=== PATIENT | male | born 1970 | race Caucasian/White ===

== ENCOUNTER → 2019-01-28 09:30 | Outpatient (CLI) | payer BC, SELFPAY ==
--- NOTE | 2019-01-28 09:35 | XR_ITS ---
XR elbow RT min 3V Ordering Physician: Misti Weir MD Patient Age: 48 years: Male HISTORY: right elbow pain and swelling. Large knot posterior elbow 3 weeks. No injury. Pain, soreness. Steroids have not helped.. TECHNIQUE: 3 view right elbow COMPARISON :None prior FINDINGS There is focal soft tissue swelling seen along the posterior aspect of the elbow overlying the olecranon. This pattern most typically seen with a olecranon bursitis. There is some faint wispy 2 mm x 1 mm calcification overlying the posterior prominence slight posterior process olecranon . This could reflect subtle old trauma. Although not typical for gout calcification at this specific site you may want to exclude gout in the workup. The cortex shows no destruction to suggest additional bone involvement or infection there is no no joint effusion. The radial head is intact the elbow joint is intact. IMPRESSION: 1.. Prominent soft tissue swelling dorsal to the olecranon Most typically this is seen with a olecranon bursitis. Tiny wispy calcification overlying the posterior process of the olecranon Noted. & Nonspecific as discussed above
== END ==
PROVIDERS: PCP Physician Assistant; Visit Provider Orthopaedic Surgery
DX: M25.521 Pain in right elbow (principal)
CPT/HCPCS: 73080

== ENCOUNTER 2020-10-24 13:41 | Emergency (ER) | payer OTHER, SELFPAY ==
[2020-10-24 13:50] VITALS: BP 134/84; PULSE 91; RESP 18; TEMP 36.7; O2SAT 97; BMI 23.8
[2020-10-24 14:15] LABS: UTC Influenza A Antigen Negative (Negative)
[2020-10-24 14:16] LABS: UTC Influenza B Antigen Negative (Negative)
--- NOTE | 2020-10-24 14:29 | HMH.EDUTC ---
[facility] [place] Disposition Clinical Impression: Bronchitis Sinusitis Qualifiers: Sinusitis location: unspecified location Chronicity: unspecified Qualified Code(s): J32.9 - Chronic sinusitis, unspecified Disposition: Home, Self-Care Condition on Discharge: Good Instructions: Acute Bronchitis, DI for Sinusitis, DI for Cough -- Adult Additional Instructions: ? Start antibiotic today. Be sure to complete entire prescription even if feeling better ? Monitor temp. Tylenol every 4 hours as needed and / or ibuprofen every 6 hours as needed ( As long as your primary care physician has told you that it ok to take both. For fever/aches/pains ER if no less than 101 despite Tylenol or Motrin ? Humidifier/vaporizer or hot steamy shower ? Inhaler every 4-6 hours as needed like we discussed. If unsure how to use it, ask pharmacist to demonstrate how. Should help open airways and improve cough, wheezing, and shortness of breath ? Mucinex during the day for your cough and cough suppressant only at night. Be sure to drink lots of water. Insurance may not cover a prescriptions for mucinex. Might be cheaper to get 400mg tablets and take 2 tablet in the morning, mid-day and evening with lots of water. *Promethazine DM cough syrup will cause drowsiness. Use only at night. No driving, operating machinery or caring for small children after taking it *Tessalon Perles will not cause drowsiness but use at bedtime to help stop cough so that you may get some rest. *Start steroid today. Helps with inflammation therefore, cough and wheezing. Follow directions on the package. Reviewed side effects. Patient reports taking them before. Follow up IMMEDIATELY for new or worsening of symptoms OR no noticeable improvement over the next 48-72 hours. 911 immediately for any life threatening symptoms such as chest pain or difficulty breathing Prescriptions: Albuterol Sulfate [Proventil-HFA 90mcg/puff Inh] 1 - 2 puffs IH Q4HP PRN #1 inh PRN Reason: Shortness Of Breath Transmission Status: Pending to [facility] 493 methylPREDNISolone [Medrol 4mg tab] 4 mg PO DIRECTED #21 tab Transmission Status: Pending to [facility] 493 Azithromycin [Z-Domenico 250mg Tab] 250 mg PO DIRECTED #6 tab Transmission Status: Pending to [facility] 493 Referrals: Teri Woodard PA [Primary Care Provider] - Forms: Work/School Release Time of Disposition: 14:41 Medical Decision Making - Grey Inquiry Pt receiving controlled substance: No Grey was queried for this patient: No Vital Signs: 10/24/20 13:50 Temperature 98.0 F Temperature Source Oral Pulse Rate [Right Brachial] 91 H Respiratory Rate 18 Blood Pressure [Right Arm] 134/84 Blood Pressure Mean [Right Arm] 100 Blood Pressure Source [Right Arm] Automatic Cuff Blood Pressure Position [Right Arm] Sitting 02 Sat by Pulse Oximetry 97 Oxygen Delivery Method Room Air - Lab Data Lab results reviewed: Yes: I reviewed the patient's lab results. Lab Results 10/24/20 14:07: Influenza Type A Ag Negative, Influenza Type B Ag Negative Orders (Tests/Meds): ORDERS Category Date Time Status Covid-19 Nasal PCR Sendout Jairon Stat Lab 10/24/20 14:34 Ordered [facility] [place] HPI - General Stated complaint: SOA, Chest tightness,achey,headache Time Seen by Provider: 10/24/20 14:29 Mode of Arrival: Ambulatory Source of Information: Patient Limitations: No Limitations Description of Symptoms (Recalled from Triage Doc. by RN): PATIENT C/O FEVER, COUGH, HEADACHE, AND TIGHTNESS IN CHEST HEENT Symptoms (Recalled from RN notes): Yes Resp Symptoms (Recalled from RN notes): Yes Skin Symptoms (Recalled from RN notes): No MS Symptoms (Recalled from RN notes): No Functional Status (Recalled from RN notes): WNL - History of Present Illness Provider Complaint: Patient state that he has been having cough, sore throat, body aches, chills and over all not feeling well States that he isnt coughing anything up but feels lik
[2020-10-24 14:50] VITALS: BP 134/84; PULSE 91; RESP 18; TEMP 36.7; O2SAT 97
[2020-10-24 14:52] LABS: UTC Strep Screen (Rapid) Negative (Negative)
[2020-10-26 09:59] LABS: Covid-19 Nasal PCR Sendout Lex NOT DETECTED
== END 2020-10-24 14:59 | disposition home or self-care (01) ==
PROVIDERS: Emergency Provider Nurse Practitioner; PCP Physician Assistant
DX: Z20.828 Contact with and (suspected) exposure to other viral communicable diseases (principal); J20.9 Acute bronchitis, unspecified; J32.9 Chronic sinusitis, unspecified; F17.210 Nicotine dependence, cigarettes, uncomplicated
CPT/HCPCS: 87804; 87880; 99202; U0004

== ENCOUNTER → 2020-11-16 08:11 | Outpatient (CLI) | payer OTHER, SELFPAY ==
--- NOTE | 2020-11-16 08:11 | CA_ITS ---
APPROVED REPORT EXAM: Comprehensive 2D, Doppler, and color-flow Echocardiogram Account Manager Sales Representative: Donna Galarza CRT Ht: 5 ft 10 in Wt: 179lbs BSA: 1.99 BP: 118/80 mmHg Indications: CP,SMOKER 2D Dimensions LVOT 2.14 cm (M/F) 1.5-2.5 M-Mode Dimensions RVDd 2.52 cm (0.9-2.6) LA Diam 3.71 cm (1.9-4.0) LVDd 4.17 cm (3.5-5.7) Ao Diam 2.82 cm (2.0-3.7) LVDs 3.04 cm (3.5-5.7) IVSd 0.44 cm (0.6-1.1) PWd 0.68 cm (0.6-1.1) EF (Teich) 53.20% FS 27.10% EDV (Teich) 77.30 mL ESV (Teich) 36.20 mL LV Diastology E Decel Time 160.00 (160-240 msec) E/A Ratio 1.0 MED E' 9.80 (< 7 cm/sec) E'/MED E' Ratio 5.38 (>14) LAT E' 13.70 (<10 cm/sec) E/LAT E' Ratio 3.85 (>14) Mitral Valve MV E Max Geovani. 53.00 (40-130 cm/s) MV A Velocity 52.00 (40-130 cm/s) E/A Ratio 1.01 MV Decel. Time 160.00 (160-240 ms) MV PHT 47.00 ms Pulmonary Valve PV Peak Velocity 66.00 (50-150 cm/s) Tricuspid Valve TR P. Velocity 178.00 cm/s RAP Estimate 10.00 mmHg RVSP 22.70 mmHg Left Ventricle Left atrium is normal size, left ventricle is normal size, visually estimated ejection fraction 55% with no regional wall motion abnormality, diastolic parameters are within normal range. Right Ventricle Right atrium and right ventricle are normal size and contractility. Aortic Valve Aortic valve is minimally thickened and fibrosed, there is no aortic stenosis or aortic insufficiency. Mitral Valve Mitral valve is grossly normal, there is trace mitral regurgitation. Tricuspid Valve Tricuspid valve grossly normal, there is trace tricuspid regurgitation. Pulmonic Valve Pulmonic valve is poorly visualized. Great Vessels Aortic root is normal size. Pericardium No significant pericardial effusion noted. Conclusion 1. Normal left ventricular size, preserved left ventricular systolic function, visually estimated ejection fraction 55% with no regional wall motion abnormality, diastolic parameters are within normal range. 2. Trace mitral and tricuspid regurgitation. 3. No significant pericardial effusion noted. Electronically signed by : Ad Wild, 11/16/2020 13:03:10
--- NOTE | 2020-11-16 08:11 | CA_ITS ---
APPROVED REPORT Exam: Exercise Treadmill Technologist: Sharon Espinal, Ht: 5 ft 10 in Wt: 179 lbs BSA: 1.99 m2 HR: 64 bpm BP: 130/97 mmHg Rhythm: NSR,EARLY REPOLARIZATION CHANGES,ST-T ABNS IN III,aVF Medical History Medications: Albuterol,,,,, DOxycycline,,,,, Allergies: No known drug allergies Cardiac Risk Factors: FHX of CAD Stress Test Details Test: Leonel HR Resting HR: 67 bpm Max Heart Rate (APMHR): 168 bpm Max HR Achieved: 150 bpm Target HR (85% APMHR): 142 bpm % of APMHR: 89 Recovery HR: 126 bpm BP Resting BP: 130.0/97.0 mmHg Recovery BP: 148.0/84.0 mmHg ECG Medications Administered Cardizem Injection ( mg at ) Clinical Exercise duration: 10:45 min Highest Stage Achieved: Exercise capacity: 12.8 METs Stress ECG Conclusion EXERCISED 10:45 ON LEONEL PROTOCOL WITH MAX HEART RATE 140 BPM WHICH IS 83% OF PM FOR AGE. MAX BP 166/85. METS = 12.8. TEST STOPPED DUE TO SOA AND LEG FATIGUE. NO CP. RARE PVC. NORMAL ST RESPONSE TO EXERCISE. NORMAL GXT TO HR ACHIEVED(83%OF PM). GXT ONLY (NO IMAGING) Test Summary Stage 4 01:45 16.0 4.2 140 . . . . REST . . . . . . . Standing REST . . . . . . . Sitting REST . . . . . . . Sitting REST 05:01 0.0 0.0 67 . 130/ 97 . . Stage 1 01:00 10.0 1.7 91 . . . . Stage 1 02:00 10.0 1.7 95 . . . . Stage 1 03:00 10.0 1.7 96 . 138/ 80 . . Stage 2 01:00 12.0 2.5 100 . . . . Stage 2 02:00 12.0 2.5 104 . . . . Stage 2 03:00 12.0 2.5 106 . 145/ 80 . . Stage 3 01:00 14.0 3.4 115 . . . . Stage 3 02:00 14.0 3.4 120 . . . . Stage 3 03:00 14.0 3.4 122 . 166/ 85 . . Stage 4 01:00 16.0 4.2 138 . . . . Stage 4 01:45 16.0 4.2 140 . . . Stop exercise at 10:45 RECOVERY 01:00 0.0 0.0 119 . . . . RECOVERY 02:00 0.0 0.0 92 . 148/ 84 . . RECOVERY 03:00 0.0 0.0 78 . 145/ 85 . . RECOVERY 04:00 0.0 0.0 66 . 137/ 87 . . RECOVERY 05:00 0.0 0.0 74 . 129/ 85 . . RECOVERY 05:34 0.0 0.0 74 . 129/ 85 . . Electronically signed by : Marcel Garcia, 11/16/2020 14:25:37
== END ==
PROVIDERS: PCP Physician Assistant; Visit Provider Physician Assistant
DX: R07.9 Chest pain, unspecified (principal)
CPT/HCPCS: 93017; 93306

== ENCOUNTER → 2021-04-16 17:38 | Outpatient (CLI) | payer OTHER, SELFPAY ==
[2021-04-16 18:14] LABS: Basophils # 0.1 K/mm3 (0-0.2); Basophils % 0.6 % (0.1-2.0); Eosinophils # 0.2 K/mm3 (0.0-0.4); Eosinophils % 2.4 % (0.1-12.0); Hematocrit 40.3 % (42.0-52.0); Hemoglobin 13.6 g/dL (14.1-18.0); Lymphocytes # 2.3 K/mm3 (0.7-4.5); Mean Corpuscular HGB Conc 33.7 g/dL (31.8-35.4); Mean Corpuscular Volume 86.2 fl (80-94); Monocytes # 0.5 K/mm3 (0.1-1.0); Monocytes % 5.6 % (1.7-9.3); Neutrophils # 6.7 K/mm3 (1.8-7.8); Neutrophils % 68.4 % (37.0-80.0); Platelet Count 237 K/mm3 (142-424); Red Blood Count 4.68 M/mm3 (4.60-6.20); Red Cell Distribution Width 13.3 % (11.5-17.5); White Blood Count 9.7 K/mm3 (4.8-10.8)
[2021-04-16 19:38] LABS: Alanine Aminotransferase 22 U/L (12-78); Albumin Level 4.3 g/dl (3.5-5.0); Albumin/Globulin Ratio 1.5 (1.1-1.8); Alkaline Phosphatase 59 U/L (38-126); Anion Gap 10.7 mEq/L (5-15); Aspartate Amino Transferase 29 U/L (17-59); Blood Urea Nitrogen 12 mg/dl (9-20); Calcium 8.9 mg/dl (8.4-10.2); Carbon Dioxide 22 mmol/L (22.0-30.0); Chloride 108 mmol/L (98-107); Cholesterol 135 mg/dl (140-200); Estimated Glomerular Filt Rate 89 ml/min (>60); GFR (African American) 107 ML/MIN (>60); Globulin 2.8 g/dL (1.3-3.2); Glucose 111 mg/dl (74-100); HDL Cholesterol 34 mg/dl (40-60); Potassium 3.7 mmoL/L (3.5-5.1); Sodium 137 mmol/L (136-145); Total Protein,Serum 7.1 g/dl (6.3-8.2); Triglycerides 192 mg/dl (30-150); VLDL Cholesterol 38 mg/dL (0-40)
[2021-04-16 19:41] LABS: Erythrocyte Sedimentation Rate 20 mm/hr (0-20)
[2021-04-16 19:45] LABS: C-Reactive Protein 3.7 mg/L (0-4)
[2021-04-16 19:55] LABS: Direct LDL Cholesterol 63.02 mg/dL (100-129)
[2021-04-16 20:10] LABS: Prostate Specific Ag Screen 0.5 ng/ml (0.0-4.0); Thyroid Stimulating Hormone 1.66 uIU/mL (0.465-4.68)
[2021-04-18 14:51] LABS: Anti-Centromere B Antibodies <0.2 AI (0.0-0.9); Anti-Jo-1 <0.2 AI (0.0-0.9); Anti-Smith Antibody <0.2 AI (0.0-0.9); Antichromatin Antibodies <0.2 AI (0.0-0.9); Antiscleroderma-70 Antibodies <0.2 AI (0.0-0.9); RNP Antibodies 0.2 AI (0.0-0.9); Sjogren's Anti-SS-A <0.2 AI (0.0-0.9); Sjogren's Anti-SS-B <0.2 AI (0.0-0.9)
[2021-04-19 05:52] LABS: Anti-DNA (DS) Ab Qn <1 IU/mL (0-9); RA Latex Turbid. <10.0 IU/mL (0.0-13.9)
[2021-04-19 05:53] LABS: Anti-Cyclic Citrullinated Pept 2 units (0-19)
== END ==
PROVIDERS: Visit Provider Physician Assistant
DX: R11.0 Nausea (principal); M25.50 Pain in unspecified joint; H66.91 Otitis media, unspecified, right ear; Z12.5 Encounter for screening for malignant neoplasm of prostate; Z72.0 Tobacco use
CPT/HCPCS: 80053; 80061; 84443; 85025; 85651; 86140; 86200; 86225; 86235; 86431; G0103

== ENCOUNTER 2021-04-20 12:31 | Emergency (ER) | payer OTHER, SELFPAY ==
[2021-04-20 12:39] VITALS: BP 135/79; PULSE 92; RESP 19; TEMP 37.4; O2SAT 99; BMI 24.3
[2021-04-20 12:50] VITALS: BP 135/79; PULSE 92; RESP 19; TEMP 37.4; O2SAT 99
--- NOTE | 2021-04-20 12:50 | HMH.EDUTC ---
[facility] [place] Disposition Clinical Impression: Otitis externa Qualifiers: Otitis externa type: unspecified type Chronicity: unspecified Laterality: right Qualified Code(s): H60.91 - Unspecified otitis externa, right ear Disposition: Home, Self-Care Condition on Discharge: Good Instructions: Otitis Externa, DI for Otitis Externa Additional Instructions: Continue oral antibiotics as prescribed by your Family Doctor and will add Ofloxicin ear drops for treatment of infection in outer ear canal Use drops as prescribed Follow up with your Family Doctor if no improvement in the next 48-72 hours Return if needed Straight to ER if any life threatening Prescriptions: Ofloxacin [Floxin 0.3% OTIC Solution 5mL] 7 drops OT BID 10 Days #1 bottle Transmission Status: Pending to [facility] 493 methylPREDNISolone [Medrol 4mg tab] 4 mg PO DIRECTED #21 tab Transmission Status: Pending to [facility] 493 Referrals: Teri Woodard PA [Primary Care Provider] - As needed Time of Disposition: 13:05 Medical Decision Making - Grey Inquiry Pt receiving controlled substance: No Grey was queried for this patient: No Vital Signs: 04/20/21 12:39 04/20/21 12:50 Temperature 99.4 F 99.4 F Temperature Source Oral Pulse Rate 92 H Pulse Rate [Left] 92 H Respiratory Rate 19 19 Blood Pressure 135/79 Blood Pressure [Right Arm] 135/79 Blood Pressure Mean [Right Arm] 97 02 Sat by Pulse Oximetry 99 [facility] [place] HPI - General Stated complaint: Ear ache; migraine;lightheaded Time Seen by Provider: 04/20/21 12:51 Mode of Arrival: Ambulatory Source of Information: Patient Limitations: No Limitations Description of Symptoms (Recalled from Triage Doc. by RN): Pt states he was here on Friday and saw Teri and was treated for an right ear infection and it is getting so bad he can't hardly function . HEENT Symptoms (Recalled from RN notes): Yes Resp Symptoms (Recalled from RN notes): No Skin Symptoms (Recalled from RN notes): No MS Symptoms (Recalled from RN notes): No Functional Status (Recalled from RN notes): wnl - History of Present Illness Provider Complaint: Patient state that he saw his PCP on Friday for right ear infection State that it has continued to get worse even though he has been taking his oral medication State that now ear is sore to the touch and hurts when he touches or lays on that side and feels like it is swollen and drainage coming from it State that he feels like there is fluid in there and making him have throbbing pain and feel off balance at times State that he was trying to work today but his ear was throbbing so he came back in to get it checked - Related Data Previous Rx's Medication Instructions Recorded albuterol sulfate 90 mcg/actuation 2 inh INHALATION Q4HP PRN #1 inh 10/31/20 aerosol inhaler amoxicillin 875 mg-potassium 1 tab PO BID 10 Days #20 tab 04/16/21 clavulanate 125 mg tablet omeprazole 40 mg capsule,delayed 40 mg PO DAILY #90 cap 04/16/21 release Ofloxacin [Floxin 0.3% OTIC 7 drops OT BID 10 Days #1 bottle 04/20/21 Solution 5mL] methylPREDNISolone [Medrol 4mg 4 mg PO DIRECTED #21 tab 04/20/21 tab] Allergies Allergy/AdvReac Type Severity Reaction Status Date / Time No Known Allergies Allergy Verified 04/20/21 12:50 - Worker's Comp Is this a Worker's Comp case?: No [facility] History - Hepatitis A Screen Drug use history?: No High risk sexual behaviors?: No History of sexually transmitted infection?: No Currently employed?: No Childcare worker?: No Do you have indoor plumbing?: Yes Do you have electricity?: Yes Attestation statement:: This patient has been screened for Hepatitis A risk factors. I have reviewed the patient's past medical history: Yes Medical History: Reports:: Kidney Stones Denies:: Cancer, Diabetes Mellitus Type 1, Diabetes Mellitus Type 2, MRSA Other Surgeries: Yes: No Previous Surgery Amputation: No Fractures: No - Social Hi
== END 2021-04-20 13:09 | disposition home or self-care (01) ==
PROVIDERS: Emergency Provider Nurse Practitioner; PCP Physician Assistant
DX: H60.91 Unspecified otitis externa, right ear (principal); Z87.442 Personal history of urinary calculi
CPT/HCPCS: 99202; G0463

== ENCOUNTER → 2021-04-24 08:40 | Outpatient (CLI) | payer OTHER, SELFPAY ==
--- NOTE | 2021-04-24 08:40 | US_ITS ---
PROCEDURE: US ABDOMEN LIMITED CLINICAL INDICATION: postprandial nausea Right upper quadrant pain COMPARISON: No exams were available for comparison FINDINGS: PANCREAS: Pancreatic tail is not well visualized. The body and head region of the pancreas have an unremarkable sonographic appearance. LIVER: No focal liver lesions demonstrated. Homogeneous echogenicity. No intrahepatic biliary ductal dilatation evident. There is appropriate direction of blood flow within a non dilated portal vein RIGHT KIDNEY: Unremarkable. Normal size and echogenicity. No hydronephrosis GALLBLADDER: No gallstones, gallbladder wall thickening, pericholecystic fluid, or biliary dilatation. Small polyp is present in the gallbladder along the posterior wall measuring 2 mm. IMPRESSION: No gallstones apparent. Small gallbladder polyp of approximately 2 mm. Dictated by: Dean Archer MD 04/24/2021 10:58 Dean Archer MD in [place] 04/24/2021 10:58
== END ==
PROVIDERS: PCP Physician Assistant; Visit Provider Physician Assistant
DX: R11.0 Nausea (principal)
CPT/HCPCS: 76705

== ENCOUNTER → 2021-05-10 10:01 | Outpatient (CLI) | payer OTHER, SELFPAY ==
--- NOTE | 2021-05-10 10:01 | NM_ITS ---
PROCEDURE: NM HEPATOBILIARY W PHARM CLINICAL INDICATION: Polyp on gallbladder COMPARISON: No exams were available for comparison FINDINGS: There is normal homogeneous uptake in the liver with normal uptake in the biliary tree and gallbladder and normal excretion of radiotracer into the duodenum by 1 hour. IV injection of CCK the gallbladder ejection fraction is normal at 83 percent (normal is 35 percent or greater). There was mild upper abdominal pain with IV injection of CCK. IMPRESSION: Normal hepatobiliary scan with normal gallbladder ejection fraction of 83 percent. Mild upper abdominal pain with IV injection of CCK. Dictated by: Kei Andino MD 05/10/2021 12:43 Kei Andino MD in [place] 05/10/2021 12:43
== END ==
PROVIDERS: PCP Physician Assistant; Visit Provider Physician Assistant
DX: K82.4 Cholesterolosis of gallbladder (principal)
CPT/HCPCS: 78227; A9537; J2805

== ENCOUNTER → 2021-06-13 17:35 | Outpatient (CLI) | payer OTHER, SELFPAY | PROVIDERS: Visit Provider Internal Medicine Gastroenterology | DX: Z01.812 Encounter for preprocedural laboratory examination (principal); Z11.52 Encounter for screening for COVID-19; Z13.810 Encounter for screening for upper gastrointestinal disorder | CPT/HCPCS: U0003 ==

== ENCOUNTER 2021-06-15 11:26 | Day surgery (SDC) | payer OTHER, SELFPAY ==
[2021-06-12 10:54] VITALS: BMI 24.3
[2021-06-15 12:09] VITALS: BP 109/82; PULSE 70; RESP 18; TEMP 36.6; O2SAT 97
--- NOTE | 2021-06-15 12:55 | P.PN_ITS ---
[facility] Anesthesia Checklist - Structural Data Admitted From: Home Planned Operative Procedure/s: egd Consent for Planned Operative Procedure(s) Verified: Yes - Airway Assessment C-Spine Mobility Assessed: Yes TMJ Mobility Assessed: Yes Dentition: Good Dentition - Neurological Assessment Level of Consciousness: Awake, Alert, Appropriate - Anesthesia Plan Anesthesia Risk discussed: Yes Anesthesia Plan: Verified ASA Class: II Anesthesia Type: MAC [facility] History I have reviewed the patient's past medical history: Yes Medical History: Reports:: Kidney Stones Denies:: Cancer, Diabetes Mellitus Type 1, Diabetes Mellitus Type 2, Internal Pacemaker, MRSA, Seizures *Have you ever received a pneumonia vaccine?: No *Have you received a flu vaccine this season?: No Anesthesia experience/problems:: none Other Surgeries: Yes: No Previous Surgery. No: Pacemaker Amputation: No Fractures: No - *Social History Last grade of school completed: Advanced degree Smoking Status: Current every day smoker Tobacco Type: cigarettes # Packs/Day (cigarettes): 1 Alcohol Intake: current Alcohol Intake Frequency:: holidays/special occasions only Substance Use Type: denies use *Occupational Status:: employed Housing: house Household Members: spouse *Travel in the last 8 weeks: None Family Hx:: Cancer, Hyperlipidemia, Hypertension
--- NOTE | 2021-06-15 13:06 | HMH.PROC ---
[facility] Procedure Note Procedure Note:: Upper Endoscopy Procedure Report: Esophagogastroduodenoscopy with cold biopsies and TTS balloon dilation Endoscopost: Sedrick Velasco II, MD Referring Physician: Teri Woodard PA-C Date of Procedure: June 15, 2021 Equipment: Olympus GIF 190 standard upper endoscope Sedation: MAC sedation Indications: Mr. Kingston is a 50-year-old gentleman with postprandial nausea during and immediately after his meals. He does have early satiety. He also reports moderate bloating and some gassiness. He has had some epigastric abdominal discomfort. He does get rare vomiting. He reports some minor belching. The patient also has had diarrhea for more than a year on 4 out of 7 days. The patient did have echocardiogram and cardiac stress testing in October 2020 which was essentially normal. His more recent ultrasound of the right upper quadrant showed a normal gallbladder with no gallstones or cholecystitis. There was a very small 2 mm gallbladder polyp. His subsequent HIDA scan showed an 83% gallbladder ejection fraction (normal). The patient reports some heartburn but no chest pain or dysphagia. The patient's last colonoscopy was 6 to 8 years ago and was normal. Procedure: Prior to the procedure, a history and physical exam was performed, and patient's medications and allergies were reviewed. The risks, benefits and alternatives of the sedation and procedure were discussed with the patient. All questions were answered and informed consent was obtained. The patient was brought to the procedure room. Patient identification and proposed procedure were verified by the physician and the nurse. The patient was placed in a left lateral decubitus position and the scope was passed under direct vision. Throughout the procedure, the patient's blood pressure, pulse, and oxygen saturations were monitored continuously. The upper GI endoscopy was accomplished without difficulty. The patient tolerated the procedure well. Findings: The scope was passed directly into the upper esophagus and advanced to the third portion of the duodenum. The post bulbar duodenum and duodenal bulb were normal with normal mucosa and conniventes. Cold biopsies were taken from the duodenum. The scope was withdrawn through a normal duodenal bulb and pylorus into the stomach. There was some bile reflux with linear reactive gastropathy of the antrum of the stomach. The remainder of the body and fundus of the stomach were grossly normal. Upon retroflexion there was a 3 cm medium sized hiatal hernia. 2 biopsies were taken in the antrum and along the lesser curvature for histology to rule out gastritis and/or H pylori. The scope was then withdrawn into the esophagus. There was a serrated Z-line and evidence of nonerosive GERD. There were tertiary contractions and evidence of moderate esophageal dysmotility. Biopsies were taken from the GE junction. The entire esophagus was dilated to 60 Lithuanian/20 mm with a TTS hydrostatic balloon. There was mild resistance at the cricopharyngeus. The remainder of the esophageal mucosa was normal. Impression: 1. Nonerosive GERD with moderate esophageal dysmotility and medium sized (3 cm) hiatal hernia 2. Bile reflux with mild linear reactive gastropathy Plan: I will follow-up the biopsies. I do feel that the patient has functional dyspepsia. We will discuss dietary measures and treatment options. I will recommend diagnostic colonoscopy as well.
[2021-06-15 13:10] VITALS: BP 103/69; PULSE 76; RESP 16; TEMP 37.6; O2SAT 93
[2021-06-15 13:20] VITALS: BP 120/68; PULSE 77; RESP 16; O2SAT 100
[2021-06-15 13:30] VITALS: BP 122/68; PULSE 66; RESP 16
[2021-06-15 14:00] VITALS: BP 116/74; PULSE 58; RESP 16; O2SAT 98
[2021-06-15 14:31] VITALS: O2SAT 94
== END 2021-06-15 14:26 | disposition home or self-care (01) ==
LOC: OUTP 11:28
PROVIDERS: PCP Physician Assistant; Visit Provider Internal Medicine Gastroenterology
PROC: 0DJ08ZZ Inspection of Upper Intestinal Tract, Via Natural or Artificial Opening Endoscopic (ICD-10-PCS; CPT 43235; principal; 2021-06-15 12:30)
DX: K21.9 Gastro-esophageal reflux disease without esophagitis (principal); K30 Functional dyspepsia; K22.4 Dyskinesia of esophagus; K44.9 Diaphragmatic hernia without obstruction or gangrene; K31.9 Disease of stomach and duodenum, unspecified; Z72.0 Tobacco use; Z80.9 Family history of malignant neoplasm, unspecified; Z82.49 Family history of ischemic heart disease and other diseases of the circulatory system; Z83.438 Family history of other disorder of lipoprotein metabolism and other lipidemia; J44.9 Chronic obstructive pulmonary disease, unspecified; Z79.899 Other long term (current) drug therapy
CPT/HCPCS: 43239; 43249; C1726

== ENCOUNTER → 2021-06-25 08:35 | Outpatient (CLI) | payer OTHER, SELFPAY ==
[2021-06-27 13:12] LABS: Pancreatic Elastase, Fecal 163 (>200)
== END ==
PROVIDERS: Visit Provider Internal Medicine Gastroenterology
DX: K85.90 Acute pancreatitis without necrosis or infection, unspecified (principal)
CPT/HCPCS: 82656

== ENCOUNTER → 2021-08-21 16:15 | Outpatient (CLI) | payer OTHER, SELFPAY ==
[2021-08-21 16:39] LABS: Basophils # 0.1 K/mm3 (0-0.2); Basophils % 0.9 % (0.1-2.0); Eosinophils # 0.3 K/mm3 (0.0-0.4); Eosinophils % 3.2 % (0.1-12.0); Hematocrit 46.6 % (42.0-52.0); Hemoglobin 15.2 g/dL (14.1-18.0); Lymphocytes # 2.8 K/mm3 (0.7-4.5); Mean Corpuscular HGB Conc 32.5 g/dL (31.8-35.4); Mean Corpuscular Hemoglobin 30.4 pg (27.0-31.2); Mean Corpuscular Volume 93.4 fl (80-94); Monocytes # 0.5 K/mm3 (0.1-1.0); Monocytes % 5.3 % (1.7-9.3); Neutrophils # 5.9 K/mm3 (1.8-7.8); Neutrophils % 61.7 % (37.0-80.0); Platelet Count 241 K/mm3 (142-424); Red Blood Count 4.99 M/mm3 (4.60-6.20); Red Cell Distribution Width 13.5 % (11.5-17.5); White Blood Count 9.5 K/mm3 (4.8-10.8)
[2021-08-21 16:59] LABS: Amylase 71 U/L (30-110); Blood Urea Nitrogen 12 mg/dl (9-20); Calcium 9.5 mg/dl (8.4-10.2); Carbon Dioxide 28 mmol/L (22.0-30.0); Estimated Glomerular Filt Rate 78 ml/min (>60); GFR (African American) 95 ML/MIN (>60); Glucose 68 mg/dl (74-100)
[2021-08-21 17:47] LABS: Vitamin B12 680 pg/mL (239-931)
[2021-08-21 18:23] LABS: Alanine Aminotransferase 26 U/L (12-78); Albumin Level 4.5 g/dl (3.5-5.0); Albumin/Globulin Ratio 1.4 (1.1-1.8); Alkaline Phosphatase 52 U/L (38-126); Anion Gap 10.6 mEq/L (5-15); Aspartate Amino Transferase 32 U/L (17-59); Chloride 107 mmol/L (98-107); Globulin 3.3 g/dL (1.3-3.2); Lipase 82 U/L (23-300); Potassium 4.6 mmoL/L (3.5-5.1); Sodium 141 mmol/L (136-145); Total Protein,Serum 7.8 g/dl (6.3-8.2)
[2021-08-23 09:19] LABS: CA 19-9 <2 U/mL (0-35)
== END ==
PROVIDERS: Visit Provider Internal Medicine Gastroenterology
DX: K86.81 Exocrine pancreatic insufficiency (principal)
CPT/HCPCS: 36415; 80053; 82150; 82607; 83690; 85025; 86316

== ENCOUNTER 2021-12-08 16:51 | Emergency (ER) | payer OTHER, SELFPAY ==
--- NOTE | 2021-12-08 18:33 | HMH.EDUTC ---
[facility] [place] Disposition Clinical Impression: Viral syndrome, Exposure to COVID-19 virus Disposition: Home, Self-Care Condition on Discharge: Good Instructions: Preventing the Spread of Coronavirus Discharge Instructions, DI for COVID-19 (Suspected or Confirmed ), DI for Viral Syndrome Additional Instructions: Drink plenty of fluids. Take tylenol or ibuprofen for pain or fever. Take the medications as directed. Follow up with your regular doctor. GO TO THE ER FOR ANY WORSENING SYMPTOMS Quarantine until you know the results of your covid-19 test. If it is positive, the health department should call you and give you further instructions about your length of Quarantine and other things. Notify your school or workplace of your results and follow their instructions regarding return to work/school. The cough medication (promethazine dm) will make you drowsy, so don't drive or operate heavy machinery after taking it. Prescriptions: Promethazine/Dextromethorphan [Promethazine-Dm Syrup] 5 ml PO Q6HP PRN #240 ml PRN Reason: Cough Transmission Status: Pending to [facility] 493 Ondansetron [Zofran 4mg ODT] 4 mg PO Q8HP PRN #20 tab PRN Reason: Nausea Transmission Status: Pending to [facility] 493 methylPREDNISolone [Medrol] 4 mg PO DIRECTED 6 Days #21 packet Transmission Status: Pending to [facility] 493 Azithromycin [Z-Domenico 250mg Tab*] 250 mg PO UD DOSE PK #6 tab Transmission Status: Pending to [facility] 493 Referrals: Teri Woodard PA [Primary Care Provider] - Time of Disposition: 19:39 Medical Decision Making - Medical Records Medical records reviewed: No: I reviewed the patient's medical records. - Grey Inquiry Pt receiving controlled substance: No Vital Signs: 12/08/21 18:56 Temperature 99.2 F Temperature Source Oral Pulse Rate [Left] 74 Respiratory Rate 18 Blood Pressure [Right Arm] 118/70 Blood Pressure Mean [Right Arm] 86 02 Sat by Pulse Oximetry 98 - Lab Data Lab Results 12/08/21 18:53: Influenza Type A Ag Negative, Influenza Type B Ag Negative Orders (Tests/Meds): ORDERS Category Date Time Status Covid-19 Nasal PCR ([facility]) Routine Lab 12/08/21 18:36 Received [facility] [place] HPI - General Stated complaint: headache, lung pain chills fever Time Seen by Provider: 12/08/21 18:33 - History of Present Illness Provider Complaint: He states that for the past 2 days he has felt bad. He has a cough, chest congestion, pleuritic type chest pain with deep breathing, fever, chills and nausea. He has not been vaccinated against covid-19. - Related Data Home Medications Medication Instructions Recorded Confirmed Ofloxacin [Floxin 0.3% OTIC 7 drops OT BID 06/12/21 06/12/21 Solution 5mL] Omeprazole 40 mg PO DAILY 06/12/21 06/12/21 Previous Rx's Medication Instructions Recorded albuterol sulfate 90 mcg/actuation 2 inh INHALATION Q4HP PRN #1 inh 10/31/20 aerosol inhaler Azithromycin [Z-Domenico 250mg Tab*] 250 mg PO UD DOSE PK #6 tab 12/08/21 Ondansetron [Zofran 4mg ODT] 4 mg PO Q8HP PRN #20 tab 12/08/21 Promethazine/Dextromethorphan 5 ml PO Q6HP PRN #240 ml 12/08/21 [Promethazine-Dm Syrup] methylPREDNISolone [Medrol] 4 mg PO DIRECTED 6 Days #21 12/08/21 packet Allergies Allergy/AdvReac Type Severity Reaction Status Date / Time No Known Allergies Allergy Verified 04/20/21 12:50 [facility] History - Hepatitis A Screen Attestation statement:: This patient has been screened for Hepatitis A risk factors. I have reviewed the patient's past medical history: Yes Medical History: Reports:: Kidney Stones Denies:: Cancer, Diabetes Mellitus Type 1, Diabetes Mellitus Type 2, Internal Pacemaker, MRSA, Seizures Other Surgeries: Yes: No Previous Surgery. No: Pacemaker Amputation: No Fractures: No - Social History Smoking Status: Current every day smoker Tobacco Type: cigarettes # Packs/Day (cigarettes): 1 Alcohol Int
[2021-12-08 18:54] LABS: UTC Influenza A Antigen Negative (Negative)
[2021-12-08 18:55] LABS: UTC Influenza B Antigen Negative (Negative)
[2021-12-08 18:56] VITALS: BP 118/70; PULSE 74; RESP 18; TEMP 37.3; O2SAT 98; BMI 24.3
[2021-12-08 19:59] VITALS: BP 118/70; PULSE 74; RESP 18; TEMP 37.3
== END 2021-12-08 20:00 | disposition home or self-care (01) ==
PROVIDERS: Emergency Provider Nurse Practitioner Family; PCP Physician Assistant
DX: U07.1 COVID-19 (principal); B34.9 Viral infection, unspecified; Z87.442 Personal history of urinary calculi
CPT/HCPCS: 87804; 99202; C9803; G0463; U0003; U0005

== ENCOUNTER 2023-03-21 08:54 | Emergency (ER) | payer OTHER, SELFPAY ==
[2023-03-21] VITALS (9 sets, daily range): BP systolic 110–156; BP diastolic 69–94; PULSE 57–81; RESP 16–18; TEMP 36.6–36.8; O2SAT 97–100; BMI 23.6
--- NOTE | 2023-03-21 08:54 | ECG_ITS ---
APPROVED REPORT Exam: Resting ECG HR:73 bpm ECG Measurements Heart Rate 73 AXES HI 144 P 70 QRSd 91 QRS 79 QT 354 T 61 QTc 381 Conclusion SINUS RHYTHM NORMAL ECG UNCONFIRMED REPORT Electronically signed by : Marcel Garcia MD 03/21/2023 14:25:42
--- NOTE | 2023-03-21 09:15 | XR_ITS ---
FINAL REPORT CLINICAL HISTORY: CHEST PAIN. smoker COMPARISON: none FINDINGS: Two views of the chest were obtained. The heart size and pulmonary vascularity are within normal limits. The mediastinum is normal. The lungs are hyperinflated, likely COPD. No acute pulmonary abnormality is identified. There is no pneumothorax. The bony thorax is intact. IMPRESSION: No acute process. Reviewed, Interpreted and Dictated by Rg Mathews III, MD Transcribed by Saima Steven Authenticated and [facility]
--- NOTE | 2023-03-21 09:16 | HMH.EDGENADL ---
Discharge Plan Disposition Patient Disposition: Home, Self-Care Chief Complaint: Chest Pain Prescriptions Prescriptions: No Action albuterol sulfate 90 mcg/actuation HFA aerosol inhaler 2 inh INHALATION Q4HP PRN (Reason: Shortness Of Breath) Qty: 1 1RF promethazine-DM 120 ML syrup 5 ml PO Q6HP PRN (Reason: Cough) Qty: 240 0RF azithromycin 250 MG tablet 250 mg PO UD DOSE PK Qty: 6 0RF Rx Instructions: Take two (2) tablets today, then one (1) tablet days #2 thru #5 methylprednisolone 4 MG tablets,dose pack 4 mg PO DIRECTED 6 Days Qty: 21 0RF ondansetron 4 MG tablet,disintegrating 4 mg PO Q8HP PRN (Reason: Nausea) Qty: 20 0RF omeprazole 40 MG capsule,delayed release(DR/EC) 40 mg PO DAILY Rx Instructions: swallow whole; do not crush, chew, dissolve, cut, break ofloxacin 5 ML drops 7 drops OT BID Referrals Follow up/Referrals: Provider,Juana, [Referring] - See instructions Bakari Elizabeth MD [Staff Physician] - See instructions Activity Restrictions/Add. Instructions Additional Instructions/Restrictions: At this time was felt you are safe to be discharged home. If new or worsening symptoms please do not hesitate to return the emergency department. Please call and schedule outpatient follow-up with cardiology. Please take baby aspirin daily. Please increase your omeprazole to twice a day. Clinical Impressions Clinical Impression: Chest pain Discharge ED Provider: Omero Jj General Adult HPI General Chief complaint: Chest Pain Stated complaint: CP Time Seen by Provider: 03/21/23 09:16 Mode of Arrival: Ambulatory Limitations: No Limitations Description of Symptoms (Recalled from ER Triage Doc. by RN): PT C/O NO ENERGY X 2 WEEKS LEFT CHEST PRESSURE THAT RADITES TO LEFT ARM FOR ABOUT 1-2 DAYS, TINGLING OF BOTH HANDS. INTERMITTENT SHORTNESS OF BREATH History of Present Illness HPI narrative: Patient is a 52-year-old man with no past medical history, chronic smoker who presents to the emergency department for evaluation of chest pain. It is waxed and waned over the last few days, woke him up out of his sleep last night, pressure, left-sided, intermittently radiating down his left upper extremity with intermittent tingling in his hand. There is no associated cough, fever, other acute complaints at this time. Related Data Home Medications Medication Instructions Recorded Confirmed ofloxacin 0.3 % ear drops 7 drops OT BID . 06/12/21 06/12/21 omeprazole 40 mg capsule,delayed 40 mg PO DAILY Reflux/Acid reflux 06/12/21 06/12/21 release Previous Rx's Medication Instructions Recorded albuterol sulfate 90 mcg/actuation 2 inh inhalation Q4HP PRN 10/31/20 aerosol inhaler Shortness Of Breath #1 inh azithromycin 250 mg tablet 250 mg PO UD DOSE PK #6 tabs 12/08/21 methylprednisolone 4 mg tablets in 4 mg PO DIRECTED 6 days #21 12/08/21 a dose pack packets ondansetron 4 mg disintegrating 4 mg PO Q8HP PRN Nausea #20 tabs 12/08/21 tablet promethazine-DM 6.25 mg-15 mg/5 mL 5 ml PO Q6HP PRN Cough #240 mL 12/08/21 oral syrup Allergies Allergy/AdvReac Type Severity Reaction Status Date / Time No Known Allergies Allergy Verified 04/20/21 12:50 [facility] Disclaimer: The information contained in this section may have been updated after the patient was seen, as this information can be updated by other users. Medical History Bronchitis COPD (chronic obstructive pulmonary disease) Family history of coronary artery disease Nausea and vomiting Tobacco use Social History Smoking Status: Never smoker second hand exposure: No alcohol intake: current substance use type: denies use current occupational status: employed Travel in the last 8 weeks: None household members: spouse housing: house current occupation: body technician/painter current occupational exposures/hazards: No caffeine: Yes ROS Obtained: Yes Systems revi
[2023-03-21 09:21] LABS: Chloride 106 mmol/L (98-107); Potassium 4.4 mmoL/L (3.5-5.1); Sodium 140 mmol/L (136-145)
[2023-03-21 09:24] LABS: Alanine Aminotransferase 26 U/L (12-78); Albumin Level 4.1 g/dl (3.5-5.0); Albumin/Globulin Ratio 1.3 (1.1-1.8); Alkaline Phosphatase 55 U/L (38-126); Anion Gap 9.4 mEq/L (5-15); Aspartate Amino Transferase 40 U/L (17-59); Bilirubin,Total 0.8 mg/dl (0.2-1.3); Blood Urea Nitrogen 11 mg/dl (9-20); Carbon Dioxide 29 mmol/L (22.0-30.0); Creatinine Clearance Estimated 89 mL/min (50-200); Estimated Glomerular Filt Rate 78 ml/min (>60); GFR (African American) 94 ML/MIN (>60); Globulin 3.1 g/dL (1.3-3.2); Total Protein,Serum 7.2 g/dl (6.3-8.2)
[2023-03-21 09:25] LABS: Basophils # 0.1 K/mm3 (0-0.2); Basophils % 0.7 % (0.1-2.0); Calcium 8.8 mg/dl (8.4-10.2); Eosinophils # 0.3 K/mm3 (0.0-0.4); Eosinophils % 3.8 % (0.1-12.0); Glucose 85 mg/dl (74-100); Hematocrit 43.9 % (42.0-52.0); Hemoglobin 14.4 g/dL (14.1-18.0); Lymphocytes # 1.9 K/mm3 (0.7-4.5); Mean Corpuscular HGB Conc 32.8 g/dL (31.8-35.4); Mean Corpuscular Hemoglobin 29.8 pg (27.0-31.2); Mean Corpuscular Volume 90.8 fl (80-94); Mean Platelet Volume 8.1 fl (7.4-10.4); Monocytes # 0.5 K/mm3 (0.1-1.0); Monocytes % 5.9 % (1.7-9.3); Neutrophils # 4.9 K/mm3 (1.8-7.8); Neutrophils % 64.5 % (37.0-80.0); Platelet Count 236 K/mm3 (142-424); Red Blood Count 4.83 M/mm3 (4.60-6.20); Red Cell Distribution Width 13.3 % (11.5-17.5); White Blood Count 7.6 K/mm3 (4.8-10.8)
--- NOTE | 2023-03-21 09:27 | PC.NURSE ---
rounded on pt no complaints at this time call light @ bs
--- NOTE | 2023-03-21 09:32 | PC.NURSE ---
ROUNDED ON PT REPORTS PAIN 1-2/10 AFTER NITRO, REPORTS HEADACHE. NO NEEDS AT THIS TIME. REPORTED TO
[2023-03-21 09:38] LABS: Troponin I < 0.01 ng/ml (0.00-0.034)
--- NOTE | 2023-03-21 10:16 | PC.NURSE ---
called for printing equipment mechanic or pa to come to see pt
--- NOTE | 2023-03-21 10:21 | PC.NURSE ---
PAVAN TORRES FROM CARDIOLOGY AT BEDSIDE
--- NOTE | 2023-03-21 10:50 | PC.NURSE ---
ECHO AT BEDSIDE
--- NOTE | 2023-03-21 10:53 | EXP.CARD.CON ---
History of Present Illness History of Present Illness Consult date: 03/21/23 Requesting physician: Omero Jj Consult reason: chest pain Chief complaint: chest pain, smoker Additional Medical History:: 1. Tobacco use 2. Patient reports history of hiatal hernia and prior GI evaluation 3. Family history of coronary artery disease and esophageal cancer 4. Chest pain, 03/21/2023, x 1.5 days -Initial troponin normal -EKG unremarkable -Echo, prelim, normal EF with no significant valve disease History of present illness: 52-year-old white male smoker with reported history of hiatal hernia presented to the emergency department with 1.5-2 days of left-sided chest discomfort with radiation to the inside of the left arm unaffected by activity or rest. EKG on arrival showed no acute ST segment changes. Initial troponin is normal. Patient did get some relief with nitroglycerin but also received a headache. Pain did not resolve. He also relates having some nausea over the last several days along with a decrease in energy. He denies being diabetic, hypertensive or having history of hyperlipidemia. He does have a significant family history of coronary artery disease in both his brother (smoker) and his father (non-smoker). Cardiology consulted for evaluation and recommendations. [facility] Disclaimer: The information contained in this section may have been updated after the patient was seen, as this information can be updated by other users. Medical History Bronchitis COPD (chronic obstructive pulmonary disease) Family history of coronary artery disease Nausea and vomiting Tobacco use Social History Smoking Status: Never smoker second hand exposure: No alcohol intake: current substance use type: denies use current occupational status: employed Travel in the last 8 weeks: None household members: spouse housing: house current occupation: painter and decorator apprentice current occupational exposures/hazards: No caffeine: Yes Review of Systems Review of Systems Review of systems:: pertinent systems reviewed and negative unless documented below *Cardiovascular Cardiovascular: Reports chest pain and Denies dyspnea on exertion *Respiratory Respiratory: Denies cough and Denies dyspnea on exertion *Gastrointestinal Gastrointestinal: Reports dyspepsia, Reports nausea and Denies vomiting Exam Data for Last 24 hours Vital signs and Labs for Last 24 Hours: Temp Pulse Resp BP Pulse Ox 97.9 F 70 18 128/88 98 03/21/23 08:56 03/21/23 10:30 03/21/23 08:56 03/21/23 10:30 03/21/23 10:30 Laboratory Results - last 24 hr 03/21/23 09:00: WBC 7.6, RBC 4.83, Hgb 14.4, Hct 43.9, MCV 90.8, MCH 29.8, MCHC 32.8, RDW 13.3, Plt Count 236, MPV 8.1, Neut % (Auto) 64.5, Lymph % (Auto) 25.0, [place] % (Auto) 5.9, Eos % (Auto) 3.8, Baso % (Auto) 0.7, Neut # (Auto) 4.9, Lymph # (Auto) 1.9, [place] # (Auto) 0.5, Eos # (Auto) 0.3, Baso # (Auto) 0.1 03/21/23 09:00: Sodium 140, Potassium 4.4, Chloride 106, Carbon Dioxide 29, Anion Gap 9.4, BUN 11, Creatinine 1.00, Estimated Creat Clear 89, Estimated GFR 78, Est GFR ( Amer) 94, Glucose 85, Calcium 8.8, Total Bilirubin 0.8, AST 40, ALT 26, Alkaline Phosphatase 55, Troponin I < 0.01, Total Protein 7.2, Albumin 4.1, Globulin 3.1, Albumin/Globulin Ratio 1.3 I & O for Last 24 hours: Intake & Output 03/18/23 03/19/23 03/20/23 03/21/23 11:59 11:59 11:59 11:59 Weight 165 lb Constitutional Constitutional: no acute distress Routine Chest/Breast/Axilla Exam Chest wall: Present tenderness (Different than the pain for which he came to the ER ) *Routine Respiratory Exam Respiratory: Present CTA bilaterally *Routine Cardiovascular Exam Cardiovascular: Present RRR Meds Home Medications and Allergies Home Medications Medication Instructions Recorded Confirmed Type albuterol sulfate 90 mcg/actuation 2 inh inhalation Q4HP PRN 10/31/20 06/12/21 Rx aerosol inhaler Shortness Of Breath #
--- NOTE | 2023-03-21 11:24 | PC.NURSE ---
ROUNDED ON PT AT THIS TIME. NO NEEDS VOICED. UPDATED ON POC. CALL LIGHT WITHIN REACH
[2023-03-21 11:57] LABS: Troponin I < 0.01 ng/ml (0.00-0.034)
== END 2023-03-21 12:30 | disposition home or self-care (01) ==
PROVIDERS: Emergency Provider Emergency Medicine; PCP Physician Assistant
DX: R07.9 Chest pain, unspecified (principal); F17.210 Nicotine dependence, cigarettes, uncomplicated; M79.602 Pain in left arm
CPT/HCPCS: 71046; 80053; 84484; 85025; 93005; 93306; 99285

== ENCOUNTER → 2023-04-01 07:42 | Outpatient (CLI) | payer SELFPAY ==
--- NOTE | 2023-04-01 07:42 | CT_ITS ---
FINAL REPORT TECHNIQUE: Thin section axial images were obtained through the heart and coronary arteries per CT coronary calcium score protocol. This study was performed with techniques to keep radiation doses as low as reasonably achievable (ALARA). Individualized dose reduction techniques using automated exposure control or adjustment of mA and/or kV according to the patient's size were employed. CLINICAL HISTORY: cp FINDINGS: On the axial images, no calcification is identified. This gives a coronary artery calcium score of 0 based on the Agatston scale. This coronary calcium score places the patient within the 0 percentile based on age and gender. The heart is normal in size. There is no pleural or pericardial effusion. Limited evaluation of the lungs reveal no suspicious nodule. IMPRESSION: Coronary artery calcium score of 0 places the patient within the 0 percentile based on age and gender. Reviewed, Interpreted and Dictated by Reinaldo Andrade MD Transcribed by Judith Mcdonough Authenticated and [facility]
== END ==
PROVIDERS: PCP Physician Assistant; Visit Provider Physician Assistant
DX: R07.9 Chest pain, unspecified (principal); J44.9 Chronic obstructive pulmonary disease, unspecified; K21.9 Gastro-esophageal reflux disease without esophagitis; Z82.49 Family history of ischemic heart disease and other diseases of the circulatory system; Z13.6 Encounter for screening for cardiovascular disorders
CPT/HCPCS: 75571

== ENCOUNTER → 2023-04-18 06:22 | Outpatient (CLI) | payer OTHER, SELFPAY ==
--- NOTE | 2023-04-18 06:28 | NM_ITS ---
APPROVED REPORT Exam: Nuclear Stress Test Indication: chest pain..palpitations..fatigue Patient Location: Outpatient Stress Tech: Whitney Santiago [place] Tech:JENNY Bennett RT(R)(N) Ht: 5 ft 10 in Wt: 165 lbs HR: 59 bpm BP: 113/89 mmHg BSA: 1.92 m2 TID: 0.98 BMI: 23.6 History: chest pain..palpitations..fatigue Procedure: Patient exercised on Leonel protocol 13:01 minutes and sec, resting heart rate 59 bpm, resting blood pressure 113/89 mmHg, with exercise maximum heart rate achived was 154 bpm which is 93 % of the maximum predicted heart rate and blood pressure was 174/92 mmHg. Patient denied any complaint of chest pain. Patient has exercise capacity, achieved 14.1 METs of workload on treadmill, the blood pressure response to exercise was . Cardiac Stress and Resting SPECT Images: Cardiac Stress and Resting SPECT images were obtained using technetium 99m Myoview 31.4 mCi stress and 10.45 mCi at rest. Resting and stress imaging in both supine and prone positions demonstrate a large-sized, moderate, partially reversible inferior and inferoseptal LV wall perfusion defect. Prone images also demonstrate a medium-sized, mild, reversible perfusion defect in the anterior LV wall. Gated imaging demonstrates low-normal LV global systolic function. There is mild hypokinesis of the inferior and inferoseptal LV davis. LVEF is calculated at 52% Conclusion: Large-sized, moderate, partially reversible inferior and inferoseptal LV wall perfusion defect. Prone images also demonstrate a medium-sized, mild, reversible perfusion defect in the anterior LV wall. These defects are consistent with at least partially reversible ischemia. Gated imaging demonstrates low-normal LV global systolic function. There is mild hypokinesis of the inferior and inferoseptal LV davis. LVEF is calculated at 52% Electronically signed by : Lilly Sy, 04/20/2023 21:15:41
--- NOTE | 2023-04-18 10:01 | CA_ITS ---
APPROVED REPORT Exam: Exercise Treadmill Technologist: Whitney Cruz, Ht: 5 ft 10 in Wt: 174 lbs BSA: 1.97 m2 HR: 66 bpm BP: 116/81 mmHg Rhythm: NSR Medical History Medications: Omeprazole,,,,, Aspirin,,,,, Albuterol,,,,, Stress Test Details Test: Manual Treadmill HR Resting HR: 59 bpm Max Heart Rate (APMHR): 166 bpm Max HR Achieved: 154 bpm Target HR (85% APMHR): 141 bpm % of APMHR: 93 Recovery HR: 77 bpm HR response to stress: Normal HR response to stress BP Resting BP: 113.0/89 mmHg Max BP: 174/92 mmHg Recovery BP: 128.0/90.0 mmHg BP response to stress: Normal blood pressure response to stress. ECG Resting ECG: NSR, early repolarization pattern Stress ECG: Non-diagnostic due to baseline ST abnormality Arrhythmia: Occasional PACs and PVCs Recovery Arrhythmia: APC Clinical Reason for Termination: Generalized fatigue Exercise duration: 13:01 min Highest Stage Achieved: IV Exercise capacity: 14.1 METs Overall Exercise Capacity for Age: Excellent Stress ECG Conclusion Max HR: 154 % of PM: 93% Max BP: 174/92 METs: 14.1 Test stopped due to: generalized fatigue Symptoms: leg fatigue, SOA Arrhythmias/Ectopy: occassional PACs and PVCs during stress, as well as occasional PACS during recovery. ST-T Changes: Non-diagnostic due to baseline abnormality. Conclusion: Excellent exercise capacity for age and sex with normal HR and BP response. At baseline, ECG demonstrates normal sinus rhythm with ST changes due to early repolarization pattern. At peak stress, ECG is non-diagnostic due to baseline ST abnormalities. Occasional PACs and PVCs were present during stress, and occasional PACs were present during recovery. Test Summary REST 06:09 0.0 0.0 59 . 113/ 89 . . Stage 1 01:00 10.0 1.7 83 . . . . Stage 1 02:00 10.0 1.7 87 . 130/ 90 . . Stage 1 03:00 10.0 1.7 88 . 130/ 90 . . Stage 2 01:00 12.0 2.5 94 . . . . Stage 2 02:00 12.0 2.5 93 . . . . Stage 2 03:00 12.0 2.5 95 . 128/ 82 . . Stage 3 01:00 14.0 3.4 102 . . . . Stage 3 02:00 14.0 3.4 112 . . . . Stage 3 03:00 14.0 3.4 115 . 150/ 90 . . Stage 4 01:00 16.0 4.2 130 . . . . Stage 4 02:00 16.0 4.2 139 . . . . Stage 4 . . . . . . . Myoview Injected Stage 4 03:00 16.0 4.2 127 . . . . Stage 5 . . . . . . . Protocol changed to Manual Treadmill Stage 5 01:00 18.0 4.5 153 . . . . Stage 5 01:01 18.0 4.5 153 . . . Stop exercise at 13:01 RECOVERY 01:00 0.0 0.0 132 . . . . RECOVERY 02:00 0.0 0.0 101 . 174/ 92 . . RECOVERY 03:00 0.0 0.0 82 . 174/ 92 . . RECOVERY 04:00 0.0 0.0 75 . 150/ 76 . . RECOVERY 05:00 0.0 0.0 79 . 150/ 76 . . RECOVERY 06:00 0.0 0.0 77 . 128/ 90 . . RECOVERY 06:09 0.0 0.0 77 . 128/ 90 . . Electronically signed by : Lilly Sy, 04/18/2023 19:11:33
== END ==
PROVIDERS: PCP Physician Assistant; Visit Provider Physician Assistant
DX: R07.9 Chest pain, unspecified (principal); J44.9 Chronic obstructive pulmonary disease, unspecified; K21.9 Gastro-esophageal reflux disease without esophagitis; Z82.49 Family history of ischemic heart disease and other diseases of the circulatory system
CPT/HCPCS: 78452; 93017; A9502

== ENCOUNTER → 2023-05-05 07:58 | Outpatient (CLI) | payer OTHER, SELFPAY ==
[2023-05-05 08:36] VITALS: BMI 23.6
[2023-05-05 08:53] LABS: Chloride 105 mmol/L (98-107); Potassium 4.2 mmoL/L (3.5-5.1); Sodium 140 mmol/L (136-145)
[2023-05-05 08:56] LABS: Blood Urea Nitrogen 10 mg/dl (9-20); Creatinine Clearance Estimated 99 mL/min (50-200); Estimated Glomerular Filt Rate 88 ml/min (>60); GFR (African American) 106 ML/MIN (>60)
[2023-05-05 08:57] LABS: Anion Gap 13.2 mEq/L (5-15); Calcium 8.9 mg/dl (8.4-10.2); Carbon Dioxide 26 mmol/L (22.0-30.0); Glucose 97 mg/dl (74-100)
[2023-05-05 09:25] VITALS: BP 126/72; PULSE 55; RESP 18; O2SAT 100
== END ==
PROVIDERS: PCP Physician Assistant; Visit Provider Nurse Practitioner Family
DX: R07.9 Chest pain, unspecified (principal); R94.39 Abnormal result of other cardiovascular function study
CPT/HCPCS: 75574; 80048; Q9967

== ENCOUNTER 2023-12-09 19:14 | Outpatient (CLI) | payer OTHER, SELFPAY ==
[2023-12-09 19:01] LABS: Basophils # 0.1 K/mm3 (0-0.2); Basophils % 1.1 % (0.1-2.0); Eosinophils # 0.4 K/mm3 (0.0-0.4); Eosinophils % 4.1 % (0.1-12.0); Hematocrit 45.8 % (42.0-52.0); Hemoglobin 15.2 g/dL (14.1-18.0); Lymphocytes # 2.6 K/mm3 (0.7-4.5); Lymphocytes % 28.9 % (10-50); Mean Corpuscular HGB Conc 33.2 g/dL (31.8-35.4); Mean Corpuscular Hemoglobin 30.3 pg (27.0-31.2); Mean Corpuscular Volume 91.5 fl (80-94); Mean Platelet Volume 8.7 fl (7.4-10.4); Monocytes # 0.6 K/mm3 (0.1-1.0); Monocytes % 6.1 % (1.7-9.3); Neutrophils # 5.4 K/mm3 (1.8-7.8); Neutrophils % 59.7 % (37.0-80.0); Platelet Count 254 K/mm3 (142-424); Red Cell Distribution Width 13.6 % (11.5-17.5)
[2023-12-09 19:12] LABS: Alanine Aminotransferase 24 U/L (12-78); Albumin Level 4.3 g/dl (3.5-5.0); Albumin/Globulin Ratio 1.4 (1.1-1.8); Alkaline Phosphatase 62 U/L (38-126); Aspartate Amino Transferase 28 U/L (17-59); Bilirubin,Total 0.7 mg/dl (0.2-1.3); Blood Urea Nitrogen 14 mg/dl (9-20); Calcium 8.9 mg/dl (8.4-10.2); Carbon Dioxide 22 mmol/L (22.0-30.0); Chloride 106 mmol/L (98-107); Estimated Glomerular Filt Rate 78 ml/min (>60); GFR (African American) 94 ML/MIN (>60); Globulin 3.1 g/dL (1.3-3.2); Glucose 90 mg/dl (74-100); Sodium 139 mmol/L (136-145); Total Protein,Serum 7.4 g/dl (6.3-8.2)
[2023-12-09 19:17] LABS: C-Reactive Protein 3.7 mg/L (0-4)
[2023-12-09 20:04] LABS: Erythrocyte Sedimentation Rate 64 mm/hr (0-20)
[2023-12-09 20:32] LABS: Creatine Kinase MB 0.8 ng/ml (0.0-2.03)
[2023-12-11 11:12] LABS: Anti-Centromere B Antibodies <0.2 AI (0.0-0.9); Anti-DNA (DS) Ab Qn <1 IU/mL (0-9); Anti-Jo-1 <0.2 AI (0.0-0.9); Anti-Smith Antibody <0.2 AI (0.0-0.9); Antichromatin Antibodies <0.2 AI (0.0-0.9); Antiscleroderma-70 Antibodies <0.2 AI (0.0-0.9); RA Latex Turbid. <10.0 IU/mL (<14.0); RNP Antibodies 0.2 AI (0.0-0.9); Sjogren's Anti-SS-A <0.2 AI (0.0-0.9); Sjogren's Anti-SS-B <0.2 AI (0.0-0.9)
[2023-12-11 12:39] LABS: Anti-Cyclic Citrullinated Pept 8 units (0-19)
== END 2023-12-09 23:59 ==
LOC: LAB.DROPOF 19:14
PROVIDERS: PCP Physician Assistant; Visit Provider Physician Assistant
DX: I73.00 Raynaud's syndrome without gangrene (principal); M62.81 Muscle weakness (generalized)
CPT/HCPCS: 80053; 82553; 85025; 85651; 86140; 86200; 86225; 86235; 86431